=== PATIENT | male | born 1990 | race Caucasian/White ===

== ENCOUNTER 2017-10-24 06:51 | Emergency (ER) | payer SELFPAY ==
[~2017-10-24] VITALS: Ht 175.3 cm; Wt 88.5 kg
[2017-10-24 07:07] VITALS: BP 121/73; Ht 175.3 cm; Wt 88.5 kg
== END 2017-10-24 08:04 | disposition home or self-care (01) ==
LOC: ED 06:51
DX: R10.9 Unspecified abdominal pain (principal); R11.2 Nausea with vomiting, unspecified; R30.0 Dysuria
CPT/HCPCS: J1885